=== PATIENT | female | born 1990 | race American Indian/Alaskan Native ===

== ENCOUNTER 2019-02-16 19:12 | Emergency (ER) | payer OTHER ==
[2019-02-16 19:37] VITALS: BP 125/83
[2019-02-16] MEDS ORDERED: TYLENOL PO ONE (19:38)
[2019-02-16] MEDS ORDERED: TYLENOL ONE (19:40)
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
[2019-02-16] MEDS ORDERED: TORADOL IM ONE (21:32)
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
== END 2019-02-17 01:00 | disposition home or self-care (01) ==
LOC: ED 19:12
DX: S39.012A Strain of muscle, fascia and tendon of lower back, initial encounter (principal); R10.30 Lower abdominal pain, unspecified; R42 Dizziness and giddiness; V49.49XA Driver injured in collision with other motor vehicles in traffic accident, initial encounter; Y93.89 Activity, other specified; Y92.89 Other specified places as the place of occurrence of the external cause; Y99.8 Other external cause status
CPT/HCPCS: 72100; 73502; 96372; 99283; J1885